=== PATIENT | female | born 1950 | race Caucasian/White ===

== ENCOUNTER → 2016-08-17 | Outpatient (CLI) | payer MEDICARE, OTHER | LOC: ZCOL.LAB 12:37 | DX: Z01.812 Encounter for preprocedural laboratory examination (principal); Z86.14 Personal history of Methicillin resistant Staphylococcus aureus infection ==

== ENCOUNTER → 2016-09-01 | Outpatient (CLI) | payer MEDICARE, OTHER | LOC: MC.RAD 10:40 | DX: Z12.31 Encounter for screening mammogram for malignant neoplasm of breast (principal) ==

== ENCOUNTER → 2016-09-20 | Outpatient (CLI) | payer MEDICARE, OTHER | LOC: COL.LAB 15:31 | DX: Z01.812 Encounter for preprocedural laboratory examination (principal); M25.851 Other specified joint disorders, right hip ==

== ENCOUNTER → 2016-12-04 | Outpatient (CLI) | payer MEDICARE, OTHER | LOC: COL.RAD 07:30 | DX: K80.20 Calculus of gallbladder without cholecystitis without obstruction (principal) ==

== ENCOUNTER → 2017-06-08 | Outpatient (CLI) | payer MEDICARE, OTHER | LOC: COL.RAD 11:30 | DX: M25.552 Pain in left hip (principal) | CPT/HCPCS: J3301; Q9967 ==

== ENCOUNTER → 2017-08-24 | Outpatient (CLI) | payer MEDICARE, OTHER | LOC: COL.LAB 15:16 | DX: Z01.812 Encounter for preprocedural laboratory examination (principal) ==

== ENCOUNTER → 2017-09-14 | Outpatient (CLI) | payer MEDICARE, OTHER ==
[2017-09-14 13:04] LABS: BASO % 0.4 % (0.0-2.0); EOS # 0.1 (0.0-0.7); EOS % 2.7 % (0-4.0); GRAN # 3.3 (1.4-6.5); GRAN % 67.9 % (42.2-75.2); HEMATOCRIT 38.2 % (37.0-47.0); LYMPH # 1.1 (1.2-3.4); LYMPH % 21.6 % (20.0-51.0); MEAN CELL VOLUME 87 fl (80.0-100.0); MEAN CORPUSCULAR HEMOGLOBIN 26 pg (27.0-31.0); MEAN CORPUSCULAR HGB CONC 30 g/dl (33.0-37.0); MEAN PLATELET VOLUME 9.2 fl (7.4-10.4); MONO # 0.3 (0.1-0.6); PLATELET COUNT 189 K/mm3 (130-400); RED BLOOD COUNT 4.37 M/mm3 (4.10-5.30); REDCELL DISTRIBUTION WIDTH-CV 13.8 % (11.5-14.5)
[2017-09-14 13:09] LABS: HEMOGLOBIN 11.5 g/dl (12.5-16.0)
[2017-09-14 13:49] LABS: ERYTHROCYTE SEDIMENTATION RATE 13 mm/hr (0-30)
== END ==
LOC: COL.LAB 12:22
PROVIDERS: Orthopaedic Surgery Sports Medicine
DX: M25.552 Pain in left hip (principal); Z96.642 Presence of left artificial hip joint

== ENCOUNTER 2018-05-16 11:35 | Day surgery (SDC) | payer MEDICARE, OTHER ==
[~2018-05-16] VITALS: Ht 167.6 cm; Wt 82.5 kg
[2018-05-16 11:59] VITALS: BP 107/68; PULSE 69; TEMP 98
[2018-05-16] MEDS ORDERED: CEPHALEXIN500 M1 PO (12:27)
[2018-05-16] MEDS ORDERED: SYNTHROID0.1 MG/TAB PO (12:27)
[2018-05-16] MEDS ORDERED: LEXAPRO20 MG PO (12:28)
[2018-05-16] MEDS ORDERED: AMITRIPTYLINE H10 M1 PO (12:28)
[2018-05-16] MEDS ORDERED: PROBIOTIC FORMU1 CAP PO (12:29)
[2018-05-16] MEDS ORDERED: FRANKINCENSE TOP (12:30)
[2018-05-16] MEDS ORDERED: PROLIA60 MG/ML SQ (12:30)
[2018-05-16] MEDS ORDERED: TEMOVATE0.05% TP (12:31)
[2018-05-16] MEDS ORDERED: TURMERIC500 MG PO (12:31)
[2018-05-16] MEDS ORDERED: VITAMINC1000TA PO (12:32)
[2018-05-16] MEDS ORDERED: CALCIUM CARBON650 M2 PO (12:33)
[2018-05-16] MEDS ORDERED: VITAMIND3 5000 PO (12:33)
[2018-05-16] MEDS ORDERED: MULTI-VITAMIN W1 TA1 PO (12:34)
[2018-05-16 13:15] VITALS: BP 97/55; PULSE 70; TEMP 97.9
[2018-05-16 13:30] VITALS: BP 106/46; PULSE 72
[2018-05-16 13:45] VITALS: BP 94/57; PULSE 63
== END 2018-05-16 14:10 | disposition home or self-care (01) ==
LOC: SDCO 11:35
DX: K58.0 Irritable bowel syndrome with diarrhea (principal); R93.3 Abnormal findings on diagnostic imaging of other parts of digestive tract; K76.0 Fatty (change of) liver, not elsewhere classified; M35.00 Sjogren syndrome, unspecified; M79.7 Fibromyalgia; M85.80 Other specified disorders of bone density and structure, unspecified site; M81.0 Age-related osteoporosis without current pathological fracture; F32.9 Major depressive disorder, single episode, unspecified; M19.90 Unspecified osteoarthritis, unspecified site; L40.9 Psoriasis, unspecified; Z86.010 Personal history of colon polyps
CPT/HCPCS: J2250; J2405; J3010; J7030

== ENCOUNTER → 2019-04-14 | Outpatient (CLI) | payer MEDICARE, OTHER ==
[~2019-04-14] MED LIST: AMITRIPTYLINE H10 M1 PO; CALCIUM CARBON650 M2 PO; CEPHALEXIN500 M1 PO; FRANKINCENSE TOP; LEXAPRO20 MG PO; MULTI-VITAMIN W1 TA1 PO; PROBIOTIC FORMU1 CAP PO; PROLIA60 MG/ML SQ; SYNTHROID0.1 MG/TAB PO; TEMOVATE0.05% TP; TURMERIC500 MG PO; VITAMINC1000TA PO; VITAMIND3 5000 PO
== END ==
LOC: MC.RAD 03-19 11:00
DX: Z12.31 Encounter for screening mammogram for malignant neoplasm of breast (principal)

== ENCOUNTER → 2020-04-23 | Outpatient (CLI) | payer MEDICARE, OTHER | LOC: MC.RAD 04-15 13:00 | DX: Z12.31 Encounter for screening mammogram for malignant neoplasm of breast (principal) ==

== ENCOUNTER 2021-07-06 10:10 | Day surgery (SDC) | payer MEDICARE ==
[2021-07-06] MEDS ORDERED: OTEZLA PO (11:05)
[2021-07-06] MEDS ORDERED: NEURONTIN100 MG/CAP PO (11:05)
[2021-07-06] MEDS ORDERED: PAMELOR 10MG10 MG PO (11:07)
[2021-07-06] MEDS ORDERED: VITAMIND3 5000 PO (11:12)
[2021-07-06] MEDS ORDERED: VITAMIN K2100 MCG PO (11:14)
[2021-07-06] MEDS ORDERED: OMEGA-3 1000 MG1 CAP PO (11:15)
[2021-07-06] MEDS ORDERED: RESTASIS MULTI5.5 ML OP (11:15)
[2021-07-06] MEDS ORDERED: TRIAMCINOLONE A15 G3 TP (11:19)
[2021-07-06 12:30] VITALS: BP 112/63; PULSE 69
[2021-07-06 12:45] VITALS: BP 117/63; PULSE 63
[2021-07-06 13:00] VITALS: BP 123/65; PULSE 64
--- NOTE | 2021-07-06 13:35 | NUR ---
1230 Pt returns from endo procedure via cart and RN assist to [facility] [place] [facility]. Pt ambulates from cart to recliner with RN assist. Monitors on and alarms set. Call light within reach. Report received from DEMIAN Bradford. Pt alert and oriented. Pt requests juice and applesauce. Pt denies any pain or nausea. present in room and also requests juice and crackers. 1240 Pt taking food and drink well. No complications noted. Pt requests another applesauce. 1325 Discharge instructions given to pt and . All questions answered to their satisfaction. Handed to pt are a thank you card and discharge information. 1335 Pt transferred out of the hospital via wheelchair and this RN assist, to private vehicle driven by pt's . 1350 Post discharge, this RN realized there was no post-op temperature obtained from pt.
--- NOTE | 2021-07-06 14:00 | NUR ---
The pt's missing preoperative assessments are due to a miscommunication between this RN and another RN in terms of what was completed and what was remaining to finish.
== END 2021-07-06 13:35 | disposition home or self-care (01) ==
LOC: SDCO 10:10
DX: K52.832 Lymphocytic colitis (principal); K64.0 First degree hemorrhoids; K64.4 Residual hemorrhoidal skin tags; Z79.899 Other long term (current) drug therapy; G89.29 Other chronic pain; M19.90 Unspecified osteoarthritis, unspecified site; F32.A Depression, unspecified; F41.9 Anxiety disorder, unspecified; M79.7 Fibromyalgia; D64.9 Anemia, unspecified
CPT/HCPCS: J2704; J7030

== ENCOUNTER → 2021-07-11 | Outpatient (CLI) | payer MEDICARE ==
[~2021-07-11] MED LIST changes: +NEURONTIN100 MG/CAP PO; +OMEGA-3 1000 MG1 CAP PO; +OTEZLA PO; +PAMELOR 10MG10 MG PO; +RESTASIS MULTI5.5 ML OP; +TRIAMCINOLONE A15 G3 TP; +VITAMIN K2100 MCG PO
== END ==
LOC: MC.RAD 06-08 14:45
DX: Z12.31 Encounter for screening mammogram for malignant neoplasm of breast (principal)

== ENCOUNTER 2022-05-29 20:27 | Emergency (ER) | payer MEDICARE ==
[~2022-05-29] VITALS: Ht 167.6 cm; Wt 78.6 kg
[2022-05-29 20:37] VITALS: TEMP 98.9
[2022-05-29] MEDS ORDERED: AMOXICILLIN 8751 TAB PO ×2 (22:29)
[2022-05-29 23:00] VITALS: BP 159/81; PULSE 98
[2022-05-31] MEDS ORDERED: NORCO 325 MG-51 TAB PO (11:47)
[2022-05-31] MEDS ORDERED: SYNTHROID0.088 MG/T PO (11:48)
[2022-05-31] MEDS ORDERED: ENSTILAR 0.005%60 GM TP (11:50)
[2022-06-01] MEDS ORDERED: IMODIUM 2MG CAPS2 MG PO (08:10)
[2022-06-01] MEDS ORDERED: RESTASIS MULTI5.5 ML OP (08:30)
[2022-06-02] MEDS ORDERED: DOXYCYCLINE HY100 MG PO (12:44)
[2022-06-02] MEDS ORDERED: ASPIRIN E.C. 8181 MG PO (12:54)
== END 2022-05-29 23:00 | disposition home or self-care (01) ==
LOC: COL.ER 20:27
DX: M25.562 Pain in left knee (principal); Z88.2 Allergy status to sulfonamides

== ENCOUNTER → 2023-10-03 | Outpatient (CLI) | payer MEDICARE ==
[~2023-10-03] MED LIST changes: +AMOXICILLIN 8751 TAB PO; +ASPIRIN E.C. 8181 MG PO; +CALCIUM 600MG+D1 TAB PO; -CALCIUM CARBON650 M2 PO; +DOXYCYCLINE HY100 MG PO; +ENSTILAR 0.005%60 GM TP; +IMODIUM 2MG CAPS2 MG PO; +LEXAPRO 5MG5 MG; -LEXAPRO20 MG PO; +LOTREXONE1.5 MG PO; +NORCO 325 MG-51 TAB PO; +SYNTHROID0.088 MG/T PO
== END ==
LOC: MC.RAD 10:07
DX: Z12.31 Encounter for screening mammogram for malignant neoplasm of breast (principal)

== ENCOUNTER 2024-06-06 18:34 | Emergency (ER) | payer MEDICARE ==
[~2024-06-06] VITALS: Ht 167.6 cm; Wt 77.3 kg
[2024-06-06 18:58] VITALS: BP 153/87; TEMP 98
[2024-06-06 21:21] VITALS: PULSE 68
[2024-06-06] MEDS ORDERED: FLEXERIL5 MG PO (21:23)
[2024-06-06] MEDS ORDERED: NORCO 325 MG-51 TAB PO (21:23)
== END 2024-06-06 21:21 | disposition home or self-care (01) ==
LOC: COL.ER 18:34
DX: S62.600A Fracture of unspecified phalanx of right index finger, initial encounter for closed fracture (principal); Z90.49 Acquired absence of other specified parts of digestive tract; Z90.710 Acquired absence of both cervix and uterus; W01.198A Fall on same level from slipping, tripping and stumbling with subsequent striking against other object, initial encounter